=== PATIENT | female | born 1990 | race Caucasian/White ===

== ENCOUNTER 2016-07-12 21:31 | Emergency (ER) | payer OTHER ==
[~2016-07-12 21:31] MED LIST: ALBUTEROL2.5 MG/3 M INH/SOL; AMOXICILLIN875 M1 PO; AMOXIL500 MG PO; IBUPROFEN800 M1 PO; MEDROL4 M2 PO; PERCOCET 5-3251 EACH PO; PREDNISONE10 MG PO; PROAIR HFA0.09 MG/Ac INH; PROAIR HFA8.5 GM INH; TYLENOL EXTRA500 M2 PO
--- NOTE | 2016-07-12 21:40 | ED GI/GU/ABDOMINAL COMPLAINT ---
History of Present Illness General Chief Complaint: Abdominal Pain/Flank Pain Stated Complaint: N/V/D ABD PAIN Source: patient, family Exam Limitations: no limitations Vital Signs & Intake/Output Vital Signs & Intake/Output Vital Signs Date Time Temp Pulse Resp B/P Pulse O2 O2 Flow FiO2 Ox Delivery Rate 07/12 2228 99.3 100 22 89/53 99 Room Air 07/12 2156 98 Room Air Allergies Coded Allergies: nut - unspecified (HIVES, VOMITING 12/31/15) shellfish derived (ANAPHYLAXIS 12/31/15) Uncoded Allergies: ENVIRONMENTAL (UNKNOWN 03/31/12) PESTACIDES ON FRUITS (HIVES 03/30/12) Reconcile Medications Acetaminophen (Tylenol Extra Strength) 500 MG TABLET 2 TAB PO PRN PAIN ( Reported) Albuterol Sulfate 2.5 MG/3 ML VIAL.NEB 1 Vial INH/IESHA PRN ASTHMA (Reported) Albuterol Sulfate (Proair Hfa) 8.5 GM HFA.AER.AD 2 PUF INH Q4-6 PRN PRN DYSPNEA Amoxicillin 875 MG TABLET 1 TAB PO BID INFECTION Ibuprofen 800 MG TABLET 1 TAB PO PRN PAIN (Reported) Methylprednisolone. (Medrol) 4 MG TAB.DS.PK 1 DP PO AD inflammation 6 on day 1 then reduce by one tablet daily until gone Ondansetron (Zofran Odt) 4 MG TAB.RAPDIS 1 TAB PO Q6 PRN NAUSEA Triage Nurses Notes Reviewed? yes ? N Is pt currently ? No Onset: Abrupt Duration: hour(s): (FEW) Timing: multiple episodes today Quality/Severity: cramping, severe Severity Numbers: 10 Location: generalized abdomen Radiation: no radiation Prior Abdominal Problems: AFTER EATING NAHUN[employer]S Modifying Factors: Worsens With: eating. Associated Symptoms: abdominal pain, diarrhea, nausea/vomiting HPI: 25 year old female who presents to the ER for chief complaint of nausea, vomiting and diarrhea sudden onset since 6 pm after eating [employer] at a rest stop. Patient states she has had 15 episodes of vomiting and diarrhea, very anxious and agitated on the stretcher, pulling off her close she is having hot and cold sweats. Denies any blood in the vomit. Denies any symptoms prior to this evening. Patient appears to be in moderate distress. Past History Travel History Traveled to [place] past 21 day No Medical History Any Pertinent Medical History? see below for history Neurological: MIGRAINES EENT: NONE Cardiovascular: NONE Respiratory: asthma Gastrointestinal: NONE Hepatic: NONE Renal: NONE Musculoskeletal: NONE Psychiatric: anxiety Endocrine: hypothyroidism Blood Disorders: NONE Cancer(s): NONE Tetanus Vaccine: 04/01/12 Surgical History Surgical History: non-contributory Psychosocial History What is your primary language Chilean Family History Hx Contributory? No Review of Systems Review of Systems Constitutional: Reports: chills, fever. EENTM: Reports: no symptoms. Respiratory: Denies: cough, short of breath. Cardiovascular: Denies: chest pain, palpitations. GI: Reports: abdominal pain, diarrhea, nausea, vomiting. Genitourinary: Reports: no symptoms. Musculoskeletal: Reports: no symptoms. Skin: Reports: no symptoms. Neurological/Psychological: Reports: anxiety. Hematologic/Endocrine: Denies: bleeding, polyuria, polydipsia. Immunologic/Allergic: Denies: splenectomy. All Other Systems: Reviewed and Negative Physical Exam Physical Exam General Appearance: well developed/nourished, alert, awake, anxious, moderate distress, PALE, DIAPHORETIC Head: atraumatic, normal appearance Eyes: Bilateral: normal appearance, PERRL, EOMI. Ears, Nose, Throat, Mouth: hearing grossly normal, moist mucous membrane Neck: normal inspection, supple, full range of motion Respiratory: normal breath sounds, chest non-tender, no respiratory distress Cardiovascular: regular rate/rhythm Peripheral Pulses: 2+ radial (R), 2+ radial (L) Gastrointestinal: normal bowel sounds, soft, non-tender Back: normal inspection, normal range of motion Extremities: normal range of motion Neurologic/Psych: no motor/sensory deficits, awake, alert, oriented x 3 Skin: intact, normal color, warm/dry Core Measures ACS in differential dx? No Severe Sepsis Present: No Septic Shock Present: No Progress Differential Diagnosis: gastritis, PUD/GERD, perforated viscous, SBO, GASTROENTERITIS, FOOD POISONING Plan of Care: Orders Procedure Date/time Status LACTIC ACID 07/[address] ABD & PELVIS W IV CONTRAST 07/13 0019 Active Add-on Test (ER Only) 07/12 2224 Active HUMAN BETA HCG SCREEN 07/12 2149 Complete LIPASE 07/12 2136 Complete LACTIC ACID 07/12 2136 Complete COMPREHENSIVE METABOLIC PANEL 07/12 2136 Complete CBC WITHOUT DIFFERENTIAL 07/12 2136 Complete URINALYSIS 07/12 2132 Active Laboratory Tests 07/12/162149: Anion Gap 12, Estimated GFR > 60, BUN/Creatinine Ratio 14.4, Glucose 115 H, Lactic Acid 1.9, Calcium 9.4, Total Bilirubin 0.7, AST 24, ALT 28, Alkaline Phosphatase 70, Total Protein 8.0, Albumin 4.5, Globulin 3.5, Albumin/Globulin Ratio 1.3, Lipase 118, Total Beta HCG NEGATIVE, CBC w Diff MAN DIFF ORDERED, RBC 5.58 H, MCV 86.3, MCH 28.7, RDW 14.3, MPV 9.3, Gran % 84.2 H, Lymphocytes % 10.4 L, Monocytes % 2.3, Eosinophils % 3.1, Basophils % 0 L, Absolute Granulocytes 11.0 H, Segmented Neutrophils 68, Band Neutrophils 12 H, Absolute Lymphocytes 1.4, Lymphocytes 13 L, Monocytes 3, Absolute Monocytes 0.3, Eosinophils 4, Absolute Eosinophils 0.4, Absolute Basophils 0, Platelet Estimate ADEQUATE, Anisocytosis 1+, PUBS MCHC 33.3 LABS, NS, PHENERGEN, TORADOL ORDERED. REPEAT FLUID BOLUS. PATIENT FEELING A LITTLE BETTER. 3RD LITER INFUSING. STILL WITH DIFFUSE ABDOMINAL PAIN. PATIENT REFUSING CT ABDOMEN, STATES SHE WANTS TO LEAVE AT THIS TIME. (TERESA KHOURY,ROB) Initial ED EKG: none Departure Departure Time of Disposition: 44 Disposition: LEFT AGAINST MEDICAL ADVICE Condition: Stable Clinical Impression Primary Impression: Food poisoning Referrals: PATIENT HAS NO PRIMARY CARE DR (PCP/Family) Additional Instructions: Take Zofran as needed for nausea. Clear liquid diet only for the next 24 hours. If you have worsening abdominal pain or starts to have fever chills please return immediately to the emergency department for reevaluation. Departure Forms: Customer Survey General Discharge Information Prescriptions: Current Visit Scripts Ondansetron (Zofran Odt) 1 TAB PO Q6 PRN NAUSEA #20 TAB
[2016-07-12 22:08] LABS: ABSOLUTE BASOPHIL COUNT 0 /CUMM (0.0-0.2); ABSOLUTE EOSINOPHIL COUNT 0.4 /CUMM (0.0-0.7); ABSOLUTE LYMPH COUNT 1.4 /CUMM (1.2-3.4); ABSOLUTE MONOCYTE COUNT 0.3 /CUMM (0.10-0.60); BASOPHIL % 0 % (0.0-2.0); EOSINOPHIL % 3.1 % (0-5); GRANULOCYTE % 84.2 % (42.2-75.2); HEMATOCRIT 48.2 % (37-47); MEAN CORPUSCULAR HGB 28.7 PG (27.0-31.0); MEAN CORPUSCULAR HGB CONC 33.3 G/DL (33.0-37.0); MEAN CORPUSCULAR VOLUME 86.3 FL (81.0-99.0); MEAN PLATELET VOLUME 9.3 FL (7.4-10.4); PLATELET COUNT 246 /CUMM (130-400); RBC DISTRIBUTION WIDTH 14.3 % (11.5-14.5); RED BLOOD CELL CT 5.58 /CUMM (4.20-5.40)
[2016-07-13] MEDS ORDERED: ZOFRAN ODT4 M1 PO (00:45)
[2016-07-13 00:55] VITALS: BP 108/56
== END 2016-07-13 00:57 | disposition left against medical advice (07) ==
LOC: ERH 21:31
PROVIDERS: Emergency Medicine
DX: A05.9 Bacterial foodborne intoxication, unspecified (principal); R11.2 Nausea with vomiting, unspecified
CPT/HCPCS: 81025; 96361; 96365; 96375; 99291; J1885; J2550

== ENCOUNTER 2017-11-08 23:39 | Emergency (ER) | payer OTHER ==
[~2017-11-08] VITALS: Ht 165.1 cm; Wt 74.8 kg
[~2017-11-08 23:39] MED LIST changes: +LEVSIN-SL0.125 MG SL; +MOBIC15 M1 PO; +ZOFRAN ODT4 M1 PO; +ZOFRAN ODT4 M1 SL
--- NOTE | 2017-11-08 23:41 | ED GI/GU/ABDOMINAL COMPLAINT ---
History of Present Illness General Chief Complaint: Nausea, Vomiting, Diarrhea Stated Complaint: BIBA, VOMITING DIARRHEA Source: patient Exam Limitations: no limitations Vital Signs & Intake/Output Vital Signs & Intake/Output ED Intake and Output 11/09 0000 11/08 1200 Intake Total Output Total Balance Patient 165 lb Weight Weight Reported by Patient Measurement Method Allergies Coded Allergies: nut - unspecified (HIVES, VOMITING 12/31/15) shellfish derived (ANAPHYLAXIS 12/31/15) Uncoded Allergies: ENVIRONMENTAL (UNKNOWN 03/31/12) PESTACIDES ON FRUITS (HIVES 03/30/12) Reconcile Medications Acetaminophen (Tylenol Extra Strength) 500 MG TABLET 2 TAB PO PRN PAIN ( Reported) Albuterol Sulfate 2.5 MG/3 ML VIAL.NEB 1 Vial INH/IESHA PRN ASTHMA (Reported) Albuterol Sulfate (Proair Hfa) 8.5 GM HFA.AER.AD 2 PUF INH Q4-6 PRN PRN DYSPNEA Amoxicillin 875 MG TABLET 1 TAB PO BID INFECTION Hyoscyamine Sulfate (Levsin-Sl) 0.125 MG TAB.SUBL 1-2 TAB SL Q4P PRN abdominal pain Ibuprofen 800 MG TABLET 1 TAB PO PRN PAIN (Reported) Meloxicam (Mobic) 15 MG TABLET 1 TAB PO DAILY PRN PAIN Methylprednisolone. (Medrol) 4 MG TAB.DS.PK 1 DP PO AD inflammation 6 on day 1 then reduce by one tablet daily until gone Ondansetron (Zofran Odt) 4 MG TAB.RAPDIS 1 TAB PO Q6 PRN NAUSEA Ondansetron (Zofran Odt) 4 MG TAB.RAPDIS 1 TAB SL TID PRN nausea/vomiting Oxycodone HCl/Acetaminophen (Percocet 5-325 MG Tablet) 5 MG-325 MG TABLET 1 TAB PO BID PAIN Triage Nurses Notes Reviewed? yes ? N Is pt currently ? No Onset: Abrupt Duration: hour(s): Timing: single episode today Quality/Severity: burning Location: epigastric Radiation: no radiation Activities at Onset: [employer] Prior Abdominal Problems: none Modifying Factors: Worsens With: palpation, vomiting. Associated Symptoms: abdominal pain, diarrhea, nausea/vomiting HPI: 27 YO WOMAN in prior good health presents with nausea, vomiting, diarrhea "uncontrollably" since 6pm. She ate a piece of pizza at approximately 3:30pm. She has no fever, dyspnea, dysuria, chest pain. She is otherwise well. Past History Travel History Traveled to [place] past 21 day No Medical History Any Pertinent Medical History? see below for history Neurological: MIGRAINES NARCOLEPSY EENT: NONE Cardiovascular: NONE Respiratory: asthma Gastrointestinal: NONE Hepatic: NONE Renal: NONE Musculoskeletal: NONE Psychiatric: anxiety Endocrine: hypothyroidism Blood Disorders: NONE Cancer(s): NONE Tetanus Vaccine: 12/31/16 Surgical History Surgical History: non-contributory Psychosocial History What is your primary language Welsh Family History Hx Contributory? No Review of Systems Review of Systems Constitutional: Reports: no symptoms. EENTM: Reports: no symptoms. Respiratory: Reports: no symptoms. Cardiovascular: Reports: no symptoms. GI: Reports: no symptoms. Genitourinary: Reports: no symptoms. Musculoskeletal: Reports: no symptoms. Skin: Reports: no symptoms. Neurological/Psychological: Reports: no symptoms. Hematologic/Endocrine: Reports: no symptoms. Immunologic/Allergic: Reports: no symptoms. All Other Systems: Reviewed and Negative Physical Exam Physical Exam General Appearance: well developed/nourished, moderate distress Head: atraumatic, normal appearance Eyes: Bilateral: normal appearance. Ears, Nose, Throat, Mouth: moist mucous membrane Neck: normal inspection, supple, full range of motion, normal alignment Respiratory: normal breath sounds, chest non-tender, no respiratory distress, quiet respiration, lungs clear Cardiovascular: regular rate/rhythm Gastrointestinal: normal bowel sounds, soft, mild mid epigastric tenderness to palpation. no centeno's sign. no rebound. no guarding. Back: normal inspection Extremities: normal range of motion Neurologic/Psych: no motor/sensory deficits, awake, alert, oriented x 3 Skin: intact, normal color, warm/dry Core Measures ACS in differential dx? No Sepsis Present: No Sepsis Focused Exam Completed? No Progress Differential Diagnosis: gastritis, food poisoning, viral syndrome vs other. Plan of Care: Orders Procedure Date/time Status URINE 11/08 2346 Complete LIPASE 11/08 2341 Complete HEPATIC FUNCTION PANEL 11/08 234 Complete CBC WITHOUT DIFFERENTIAL 11/08 2341 Complete BASIC METABOLIC PANEL 11/08 234 Complete AMYLASE 11/08 234 Complete Laboratory Tests 11/08/17 2359: Anion Gap 13, Estimated GFR > 60, BUN/Creatinine Ratio 11.8, Glucose 100 H, Calcium 9.4, Total Bilirubin 0.8, Direct Bilirubin 0.2, AST 19, ALT 26, Alkaline Phosphatase 73, Total Protein 7.3, Albumin 4.1, Amylase 48, Lipase 65, CBC w Diff NO MAN DIFF REQ, RBC 5.17, MCV 83.7, MCH 28.6, MCHC 34.2, RDW 14.6 H, MPV 8.5, Gran % 78.1 H, Lymphocytes % 12.4 L, Monocytes % 5.7, Eosinophils % 3.3, Basophils % 0.5, Absolute Granulocytes 9.3 H, Absolute Lymphocytes 1.5, Absolute Monocytes 0.7 H, Absolute Eosinophils 0.4, Absolute Basophils 0.1 11/08/17 2346: Urine Test NEGATIVE Initial ED EKG: none Departure Departure Disposition: HOME OR SELF CARE Condition: Stable Clinical Impression Primary Impression: Vomiting Secondary Impressions: Abdominal pain Referrals: Patient Has No Primary Care Dr (PCP/Family) Departure Forms: Customer Survey General Discharge Information Comments 11/09/17, 1:22am.. pt is resting comfortably. labs benign. no active vomiting after supportive meds given... sent rx to pharmacy... pt safe for discharge. close follow up advised.
[2017-11-09 00:07] LABS: ABSOLUTE BASOPHIL COUNT 0.1 /CUMM (0.0-0.2); ABSOLUTE EOSINOPHIL COUNT 0.4 /CUMM (0.0-0.7); ABSOLUTE GRANULOCYTE CT 9.3 /CUMM (1.4-6.5); ABSOLUTE LYMPH COUNT 1.5 /CUMM (1.2-3.4); ABSOLUTE MONOCYTE COUNT 0.7 /CUMM (0.10-0.60); BASOPHIL % 0.5 % (0.0-2.0); EOSINOPHIL % 3.3 % (0-5); GRANULOCYTE % 78.1 % (42.2-75.2); HEMATOCRIT 43.2 % (37-47); MEAN CORPUSCULAR HGB 28.6 PG (27.0-31.0); MEAN CORPUSCULAR HGB CONC 34.2 G/DL (33.0-37.0); MEAN CORPUSCULAR VOLUME 83.7 FL (81.0-99.0); MEAN PLATELET VOLUME 8.5 FL (7.4-10.4); PLATELET COUNT 346 /CUMM (130-400); RBC DISTRIBUTION WIDTH 14.6 % (11.5-14.5); RED BLOOD CELL CT 5.17 /CUMM (4.20-5.40); WHITE BLOOD CELL COUNT 11.9 /CUMM (4.8-10.8)
[2017-11-09 01:38] VITALS: BP 126/74
== END 2017-11-09 01:40 ==
LOC: ERH 23:39
PROVIDERS: Pediatrics
DX: R11.2 Nausea with vomiting, unspecified (principal); R10.13 Epigastric pain
CPT/HCPCS: 81025; 96374; 96375; J2405